=== PATIENT | female | born 1935 | race Caucasian/White ===

== ENCOUNTER 2017-09-16 08:12 | Outpatient (CLI) | payer OTHER | END 2017-09-16 08:27 | disposition home or self-care (01) | LOC: LAB 08:12 | DX: D50.0 Iron deficiency anemia secondary to blood loss (chronic) (principal); E11.65 Type 2 diabetes mellitus with hyperglycemia; Z12.11 Encounter for screening for malignant neoplasm of colon; K62.5 Hemorrhage of anus and rectum; R10.9 Unspecified abdominal pain; E78.00 Pure hypercholesterolemia, unspecified; E03.0 Congenital hypothyroidism with diffuse goiter; N39.0 Urinary tract infection, site not specified; E55.9 Vitamin D deficiency, unspecified; M81.0 Age-related osteoporosis without current pathological fracture; E11.29 Type 2 diabetes mellitus with other diabetic kidney complication ==

== ENCOUNTER → 2017-09-20 | Outpatient (CLI) | payer OTHER | END | disposition home or self-care (01) | LOC: LAB 12:47 | DX: D50.0 Iron deficiency anemia secondary to blood loss (chronic) (principal); E11.65 Type 2 diabetes mellitus with hyperglycemia; Z12.11 Encounter for screening for malignant neoplasm of colon; K62.5 Hemorrhage of anus and rectum; R10.9 Unspecified abdominal pain; E78.00 Pure hypercholesterolemia, unspecified; E03.0 Congenital hypothyroidism with diffuse goiter; N39.0 Urinary tract infection, site not specified; E55.9 Vitamin D deficiency, unspecified; M81.0 Age-related osteoporosis without current pathological fracture; E11.29 Type 2 diabetes mellitus with other diabetic kidney complication ==

== ENCOUNTER 2017-10-05 08:58 | Outpatient (CLI) | payer OTHER | END 2017-10-05 09:09 | disposition home or self-care (01) | LOC: TOM 08:58 | DX: R10.9 Unspecified abdominal pain (principal) ==

== ENCOUNTER 2017-12-22 10:48 | Outpatient (CLI) | payer OTHER | END 2017-12-22 11:33 | disposition home or self-care (01) | LOC: RAD 501 10:48 | DX: M54.5 Low back pain (principal) ==

== ENCOUNTER 2018-09-22 09:26 | Outpatient (CLI) | payer OTHER | END 2018-09-22 09:57 | disposition home or self-care (01) | LOC: LAB 09:26 | DX: D50.0 Iron deficiency anemia secondary to blood loss (chronic) (principal); E11.69 Type 2 diabetes mellitus with other specified complication; E78.00 Pure hypercholesterolemia, unspecified; E03.8 Other specified hypothyroidism; N39.0 Urinary tract infection, site not specified; Z12.11 Encounter for screening for malignant neoplasm of colon; K62.5 Hemorrhage of anus and rectum; R10.9 Unspecified abdominal pain; E55.9 Vitamin D deficiency, unspecified; E51.8 Other manifestations of thiamine deficiency; E11.29 Type 2 diabetes mellitus with other diabetic kidney complication ==

== ENCOUNTER → 2018-10-28 | Emergency (ER) | payer OTHER ==
[~2018-10-28] VITALS: Ht 162.6 cm; Wt 62.6 kg
[~2018-10-28] MED LIST: AMLODIPINE BESYL5 MG; DONEPEZIL HCL23 MG; MEMANTINE HCL10 MG; SERTRALINE HCL50 MG; SIMVASTATIN20 MG
== END | disposition home or self-care (01) ==
LOC: ER 19:24
DX: R55 Syncope and collapse (principal); N28.1 Cyst of kidney, acquired; K57.90 Diverticulosis of intestine, part unspecified, without perforation or abscess without bleeding

== ENCOUNTER → 2018-11-03 | Outpatient (CLI) | payer OTHER | END | disposition home or self-care (01) | LOC: RAD 501 15:15 | DX: J01.90 Acute sinusitis, unspecified (principal); J32.8 Other chronic sinusitis ==

== ENCOUNTER 2019-10-03 08:57 | Outpatient (CLI) | payer OTHER | END 2019-10-03 14:14 | disposition home or self-care (01) | LOC: LAB 08:57 | DX: D64.89 Other specified anemias (principal); I10 Essential (primary) hypertension; E11.9 Type 2 diabetes mellitus without complications; E78.00 Pure hypercholesterolemia, unspecified; N39.0 Urinary tract infection, site not specified; E03.8 Other specified hypothyroidism; E55.9 Vitamin D deficiency, unspecified; R80.8 Other proteinuria; R19.5 Other fecal abnormalities ==

== ENCOUNTER 2020-10-03 13:48 | Outpatient (CLI) | payer OTHER | END 2020-10-03 14:10 | disposition home or self-care (01) | LOC: RAD 13:48 | PROVIDERS: ATTEND Orthopaedic Surgery | DX: M25.512 Pain in left shoulder (principal); M79.622 Pain in left upper arm ==

== ENCOUNTER 2020-11-14 10:16 | Outpatient (CLI) | payer OTHER | END 2020-11-14 13:33 | disposition home or self-care (01) | LOC: LAB 10:16 | DX: E11.00 Type 2 diabetes mellitus with hyperosmolarity without nonketotic hyperglycemic-hyperosmolar coma (NKHHC) (principal); E55.9 Vitamin D deficiency, unspecified; R53.83 Other fatigue; R53.81 Other malaise; R42 Dizziness and giddiness ==

== ENCOUNTER 2021-10-29 11:12 | Emergency (ER) | payer OTHER ==
[~2021-10-29] VITALS: Ht 162.6 cm; Wt 49.0 kg
[2021-10-29] MEDS ORDERED: AMLODIPINE-OLM1 EAC2 PO (11:21)
== END 2021-10-29 17:39 ==
LOC: ER 11:12
DX: F41.8 Other specified anxiety disorders (principal); R41.82 Altered mental status, unspecified
CPT/HCPCS: 70551

== ENCOUNTER 2021-11-25 12:47 | Inpatient (IN) | payer OTHER ==
[~2021-11-25] VITALS: Ht 152.4 cm; Wt 47.6 kg
[~2021-11-25 12:47] MED LIST changes: +AMLODIPINE-OLM1 EAC2 PO
[2021-11-25] MEDS ORDERED: CLONAZEPAM1 M1 PO (13:11)
[2021-12-09] MEDS ORDERED: POLY119PG PO (16:24)
[2021-12-09] MEDS ORDERED: QUETIAPINE FUMA25 MG PO (16:24)
[2021-12-09] MEDS ORDERED: SIMVASTATIN20 MG PO (16:24)
[2021-12-09] MEDS ORDERED: BENADRYL25 MG PO (16:24)
[2021-12-09] MEDS ORDERED: AMLODIPINE BESYL5 MG PO (16:24)
[2021-12-09] MEDS ORDERED: B Complex CAPSULE PO (16:24)
[2021-12-09] MEDS ORDERED: PROTEINEX-18 LI30 ML PO (16:24)
== END 2021-12-09 23:05 | disposition home or self-care (01) | DRG 640 ==
LOC: ER 12:47 → MEDI 11-26 09:50 → EDBD 11-26 09:50 → SEC-K 11-26 09:50 → MEDI 11-26 15:12
PROVIDERS: ADMIT Internal Medicine; ATTEND Internal Medicine
PROC: BW21YZZ Computerized Tomography (CT Scan) of Abdomen and Pelvis using Other Contrast (ICD-10-PCS; 2021-11-26)
PROC: B24BZZZ Ultrasonography of Heart with Aorta (ICD-10-PCS; 2021-11-27)
PROC: B345ZZZ Ultrasonography of Bilateral Common Carotid Arteries (ICD-10-PCS; 2021-11-27)
PROC: 0DH64UZ Insertion of Feeding Device into Stomach, Percutaneous Endoscopic Approach (ICD-10-PCS; principal; 2021-12-03)
PROC: 30233N1 Transfusion of Nonautologous Red Blood Cells into Peripheral Vein, Percutaneous Approach (ICD-10-PCS; 2021-12-04)
PROC: 02HV33Z Insertion of Infusion Device into Superior Vena Cava, Percutaneous Approach (ICD-10-PCS; 2021-12-04)
DX: E86.0 Dehydration (principal); A41.9 Sepsis, unspecified organism; R65.10 Systemic inflammatory response syndrome (SIRS) of non-infectious origin without acute organ dysfunction; E46 Unspecified protein-calorie malnutrition; R13.19 Other dysphagia; L89.159 Pressure ulcer of sacral region, unspecified stage; K57.30 Diverticulosis of large intestine without perforation or abscess without bleeding; E87.0 Hyperosmolality and hypernatremia; E87.6 Hypokalemia; N28.1 Cyst of kidney, acquired; D64.9 Anemia, unspecified; K59.09 Other constipation; Z74.01 Bed confinement status; G30.8 Other Alzheimer's disease; F02.80 Dementia in other diseases classified elsewhere, unspecified severity, without behavioral disturbance, psychotic disturbance, mood disturbance, and anxiety; I10 Essential (primary) hypertension; Z20.822 Contact with and (suspected) exposure to COVID-19; R41.82 Altered mental status, unspecified; D72.828 Other elevated white blood cell count

== ENCOUNTER 2021-12-29 16:38 | Inpatient (IN) | payer OTHER ==
[~2021-12-29] VITALS: Ht 165.1 cm; Wt 97.5 kg
[~2021-12-29 16:38] MED LIST changes: +AMLODIPINE BESYL5 MG PO; +B Complex CAPSULE PO; +BENADRYL25 MG PO; +CLONAZEPAM1 M1 PO; +POLY119PG PO; +PROTEINEX-18 LI30 ML PO; +QUETIAPINE FUMA25 MG PO; +SIMVASTATIN20 MG PO
[2021-12-29] MEDS ORDERED: TRAMADOL HCL50 MG (17:03)
[2021-12-29] MEDS ORDERED: QUETIAPINE 50 MG (17:05)
[2021-12-31] MEDS ORDERED: BANOPHEN25 MG (08:09)
[2021-12-31] MEDS ORDERED: AMLODIPINE BESYL5 MG (08:09)
[2021-12-31] MEDS ORDERED: SERTRALINE HCL50 MG (08:09)
[2021-12-31] MEDS ORDERED: B COMPLEX1 EACH PO (08:10)
== END 2022-01-01 18:58 | disposition home or self-care (01) | DRG 327 ==
LOC: ER 16:38 → SURG 22:42
PROVIDERS: ADMIT Internal Medicine; ATTEND Internal Medicine
PROC: 0DP63UZ Removal of Feeding Device from Stomach, Percutaneous Approach (ICD-10-PCS; principal; 2021-12-30)
PROC: 0DH63UZ Insertion of Feeding Device into Stomach, Percutaneous Approach (ICD-10-PCS; 2021-12-30)
DX: K94.23 Gastrostomy malfunction (principal); N39.0 Urinary tract infection, site not specified; R13.19 Other dysphagia; G30.8 Other Alzheimer's disease; F02.80 Dementia in other diseases classified elsewhere, unspecified severity, without behavioral disturbance, psychotic disturbance, mood disturbance, and anxiety; I10 Essential (primary) hypertension; D53.0 Protein deficiency anemia; R41.82 Altered mental status, unspecified